=== PATIENT | male | born 1955 | race Caucasian/White ===

== ENCOUNTER 2018-10-01 03:14 | Emergency (ER) | payer OTHER ==
[~2018-10-01] VITALS: Ht 167.6 cm; Wt 83.0 kg
[~2018-10-01 03:14] MED LIST: AMBIEN10 MG PO; LEVAQUIN500 MG PO
--- OUTSIDE RECORDS SUMMARY | 2018-10-01 03:17 | XMS REPORT | Summary of Care ---
Author Author [facility] Organization [facility] Address Unknown Phone Unavailable Encounter BAHMAN Gloria(JOSE MANUEL) [id number] Date(s): 01/01/17 - 01/01/17 [facility] [address] [place] [address]- Discharge Disposition: Home or Self Care Attending Physician: Dheeraj Mora MD Referring Physician: Dheeraj Mora MD Vital Signs 1 2 3 Most recent to oldest [Reference Range]: 175.26 cm (12/27/16 11:45 AM) Height 98.0 DegF (12/27/16 11:46 AM) Temperature Oral [96.4-99.1 DegF] 111/69 mmHg (01/01/17 2:45 PM) 128/82 mmHg (01/01/17 2:00 PM) 128/82 mmHg (01/01/17 1:45 PM) Blood Pressure [90-140/60-90 mmHg] 12 BRMIN *LOW* (01/01/17 2:00 PM) 18 BRMIN (01/01/17 1:45 PM) 21 BRMIN *HI* (01/01/17 1:30 PM) Respiratory Rate [14-20 BRMIN] 60 bpm (01/01/17 11:33 AM) 52 bpm *LOW* (12/27/16 11:46 AM) Peripheral Pulse Rate [60-100 bpm] 83.182 kg (12/27/16 11:45 AM) Weight 27.08 m2 (12/27/16 11:45 AM) Body Mass Index Problem List No data available for this section Allergies, Adverse Reactions, Alerts Substance Reaction Severity Status codeine Active amitriptyline Active Medications acetaminophen (ANES) Route: IV, Drug form: INJ, ONCE, Stop date: 01/01/17 13:13:00 [facility] Start Date: 01/01/17 Stop Date: 01/01/17 Status: Completed Ambien PO, Bedtime, 0 Refill(s) Start Date: 12/27/16 Status: Ordered ANES acetaminophen 1,000 mg, Route: IVPB, Drug form: INJ, ONCE, Dosing Weight 83.182, kg, PRN Pain Score 1-3, Start date: 01/01/17 14:00:00 [facility] Start Date: 01/01/17 Stop Date: 01/01/17 Status: Discontinued ANES albuterol 0.083% inhalation solution 2.49 mg, Route: NEB, Q20Min, Dosing Weight 83.182, kg, PRN Wheezing, Priority: S TAT, Start date: 01/01/17 14:00:00 [facility], Duration: 30 day, Stop date: 01/31/17 13 :59:00 [facility] Start Date: 01/01/17 Stop Date: 01/01/17 Status: Discontinued ANES diphenhydrAMINE 12.5 mg, Route: IVP, Drug form: INJ, Q6H, Dosing Weight 83.182, kg, PRN Itching, Start date: 01/01/17 14:00:00 [facility], Duration: 30 day, Stop date: 01/31/17 13:59: 00 [facility] Start Date: 01/01/17 Stop Date: 01/01/17 Status: Discontinued ANES esmolol 10 mg, Route: IVP, Q5Min, Dosing Weight 83.182, kg, PRN Other -See Comment, Star t date: 01/01/17 14:00:00 [facility], Duration: 5 doses or times, Stop date: Limited # of times Start Date: 01/01/17 Stop Date: 01/01/17 Status: Discontinued ANES fentaNYL 50 microgram, Route: IVP, Q5Min, Dosing Weight 83.182, kg, PRN Pain Score 7-10, Priority: Routine, Start date: 01/01/17 14:00:00 [facility], Duration: 2 doses or times , Stop date: Limited # of times Start Date: 01/01/17 Stop Date: 01/01/17 Status: Discontinued ANES fentaNYL 25 microgram, Route: IVP, Q5Min, Dosing Weight 83.182, kg, PRN Pain Score 4-6, P riority: Routine, Start date: 01/01/17 14:00:00 [facility], Duration: 4 doses or times, Stop date: Limited # of times Start Date: 01/01/17 Stop Date: 01/01/17 Status: Discontinued ANES flumazenil 0.2 mg, Route: IVP, PRN, Dosing Weight 83.182, kg, PRN Benzodiazepine Reversal, Initial dose, Start date: 01/01/17 14:00:00 [facility], Duration: 30 day, Stop date: 13:59:00 [facility] Start Date: 01/01/17 Stop Date: 01/01/17 Status: Discontinued ANES hydrALAZINE 10 mg, Route: IVP, Q20Min, Dosing Weight 83.182, kg, PRN Elevated BP, Start date : 01/01/17 14:00:00 [facility], Duration: 2 doses or times, Stop date: Limited # of yevgeniy es Start Date: 01/01/17 Stop Date: 01/01/17 Status: Discontinued ANES HYDROmorphone 0.5 mg, Route: IVP, Q5Min, Dosing Weight 83.182, kg, PRN Pain Score 7-10, Start date: 01/01/17 14:00:00 [facility], Duration: 4 doses or times, Stop date: Limited # of times Start Date: 01/01/17 Stop Date: 01/01/17 Status: Discontinued ANES ketOROLAC 30 mg, Route: IVP, ONCE, Dosing Weight 83.182, kg, Start date: 01/01/17 14:00:00 [facility], Stop date: 01/01/17 14:00:00 [facility] Start Date: 01/01/17 Stop Date: 01/01/17 Status: Ordered ANES labetalol 10 mg, Route: IVP, Q5Min, Dosing Weight 83.182, kg, PRN Elevated BP, Start date: 01/01/17 14:00:00 [facility], Duration: 5 doses or times, Stop date: Limited # of times Start Date: 01/01/17 Stop Date: 01/01/17 Status: Discontinued ANES meperidine 12.5 mg, Route: IVP, Q30Min, Dosing Weight 83.182, kg, PRN Other -See Comment, F or shivering, Start date: 01/01/17 14:00:00 [facility], Duration: 2 doses or times, Sto p date: Limited # of times Start Date: 01/01/17 Stop Date: 01/01/17 Status: Discontinued ANES morphine Sulfate 2 mg, Route: IVP, Q5Min, Dosing Weight 83.182, kg, PRN Pain Score 4-6, Start samuel e: 01/01/17 14:00:00 [facility], Duration: 5 doses or times, Stop date: Limited # of ti mes Start Date: 01/01/17 Stop Date: 01/01/17 Status: Discontinued ANES morphine Sulfate 4 mg, Route: IVP, Q5Min, Dosing Weight 83.182, kg, PRN Pain Score 7-10, Start da te: 01/01/17 14:00:00 [facility], Duration: 3 doses or times, Stop date: Limited # of t imes Start Date: 01/01/17 Stop Date: 01/01/17 Status: Discontinued ANES naloxone 0.4 mg, Route: IVP, Q2MIN, Dosing Weight 83.182, kg, PRN Narcotic Reversal, Star t date: 01/01/17 14:00:00 [facility], Duration: 8 doses or times, Stop date: Limited # of times Start Date: 01/01/17 Stop Date: 01/01/17 Status: Discontinued ANES naloxone 0.1 mg, Route: SUB-Q, Q6H, Dosing Weight 83.182, kg, PRN Itching, Start date: 14:00:00 [facility], Duration: 30 day, Stop date: 01/31/17 13:59:00 [facility] Start Date: 01/01/17 Stop Date: 01/01/17 Status: Discontinued ANES ondansetron 4 mg, Route: IVP, ONCE, Dosing Weight 83.182, kg, PRN Nausea & Vomiting, Start date: 01/01/17 14:00:00 [facility] Start Date: 01/01/17 Stop Date: 01/01/17 Status: Discontinued ANES oxyCODONE 5 mg, Route: PO, Drug form: TAB, Q4H, Dosing Weight 83.182, kg, PRN Pain Score 4 -6, Start date: 01/01/17 14:00:00 [facility], Duration: 30 day, Stop date: 01/31/17 13: 59:00 [facility] Start Date: 01/01/17 Stop Date: 01/01/17 Status: Discontinued ANES oxyCODONE 10 mg, Route: NG, Drug form: LIQ, Q4H, Dosing Weight 83.182, kg, PRN Pain Score 7-10, Start date: 01/01/17 14:00:00 [facility], Duration: 30 day, Stop date: 01/31/17 1 3:59:00 [facility] Start Date: 01/01/17 Stop Date: 01/01/17 Status: Discontinued Cipro 500 mg oral tablet 500 mg=1 tab, PO, Q12H, X 5 day, # 10 tab, 0 Refill(s) Start Date: 01/01/17 Stop Date: 01/06/17 Status: Ordered ciprofloxacin (ANES) Route: IV, Drug form: INJ, ONCE, Stop date: 01/01/17 13:08:00 [facility] Start Date: 01/01/17 Stop Date: 01/01/17 Status: Completed dexamethasone (ANES) Route: IV, Drug form: INJ, ONCE, Stop date: 01/01/17 13:08:00 [facility] Start Date: 01/01/17 Stop Date: 01/01/17 Status: Completed famotidine (ANES) Route: IV, Drug form: INJ, ONCE, Stop date: 01/01/17 13:03:00 [facility] Start Date: 01/01/17 Stop Date: 01/01/17 Status: Completed fentaNYL (ANES) Route: IV, Drug form: INJ, ONCE, Stop date: 01/01/17 13:08:00 [facility] Start Date: 01/01/17 Stop Date: 01/01/17 Status: Completed furosemide (ANES) Route: IV, Drug form: INJ, ONCE, Stop date: 01/01/17 13:21:00 [facility] Start Date: 01/01/17 Stop Date: 01/01/17 Status: Completed glycopyrrolate (ANES) Route: IV, Drug form: INJ, ONCE, Stop date: 01/01/17 13:18:00 [facility] Start Date: 01/01/17 Stop Date: 01/01/17 Status: Completed hydromorphone 0.3 mg, Route: IVP, Q3H, Dosing Weight 83.182, kg, PRN Pain Score 4-6, Start samuel e: 01/01/17 13:12:00 [facility], Duration: 30 day, Stop date: 01/31/17 13:11:00 [facility] Start Date: 01/01/17 Stop Date: 01/01/17 Status: Discontinued Lactated Ringers Injection IV (ANES) 1000 mL Route: IV, Total Volume: 1,000, Start date: 01/01/17 12:13:00 [facility], Stop date: 13:13:00 [facility] Start Date: 01/01/17 Stop Date: 01/01/17 Status: Completed Lactated Ringers Injection IV 1000 mL 1,000 mL, Rate: 25 ml/hr, Infuse over: 40 hr, Route: IV, Dosing Weight 83.182 kg , Total Volume: 1,000, Start date: 01/01/17 11:30:00 [facility], Duration: 30 day, Stop date: 01/31/17 11:29:00 [facility], 2.03, m2 Start Date: 01/01/17 Stop Date: 01/01/17 Status: Discontinued lidocaine (ANES) Route: IV, Drug form: INJ, ONCE, Stop date: 01/01/17 13:08:00 [facility] Start Date: 01/01/17 Stop Date: 01/01/17 Status: Completed metoclopramide (ANES) Route: IV, Drug form: INJ, ONCE, Stop date: 01/01/17 13:03:00 [facility] Start Date: 01/01/17 Stop Date: 01/01/17 Status: Completed midazolam (ANES) Route: IV, Drug form: SOLN, ONCE, Stop date: 01/01/17 13:03:00 [facility] Start Date: 01/01/17 Stop Date: 01/01/17 Status: Completed multivitamin Daily, 0 Refill(s) Start Date: 12/27/16 Status: Ordered ondansetron (ANES) Route: IV, Drug form: INJ, ONCE, Stop date: 01/01/17 13:08:00 [facility] Start Date: 01/01/17 Stop Date: 01/01/17 Status: Completed propofol (ANES) Route: IV, Drug form: INJ, ONCE, Stop date: 01/01/17 13:08:00 [facility] Start Date: 01/01/17 Stop Date: 01/01/17 Status: Completed tramadol 50 mg oral tablet 50 mg=1 tab, PO, Q6H, X 7 day, # 28 tab, 0 Refill(s) Start Date: 01/01/17 Stop Date: 01/08/17 Status: Ordered Results ELECTROLYTES Most recent to 1 oldest [Reference Range]: Sodium Lvl [135-145 139 mEq/L mEq/L] (12/27/16 12:02 PM) Potassium Lvl 4.3 mEq/L [3.5-5.1 mEq/L] (12/27/16 12:02 PM) Chloride Lvl [95-109 105 mEq/L mEq/L] (12/27/16 12:02 PM) CO2 [24-32 mEq/L] 27 mEq/L (12/27/16 12:02 PM) AGAP [10.0-20.0 11.3 mEq/L mEq/L] (12/27/16 12:02 PM) CHEM PANEL Most recent to 1 oldest [Reference Range]: Creatinine Lvl 0.90 mg/dL [0.50-1.40 mg/dL] (12/27/16 12:02 PM) eGFR 92 mL/min/1.73m2 1 *NA* (12/27/16 12:02 PM) BUN [7-22 mg/dL] 15 mg/dL (12/27/16 12:02 PM) Glucose Lvl [70-99 86 mg/dL mg/dL] (12/27/16 12:02 PM) Calcium Lvl 9.4 mg/dL [8.5-10.5 mg/dL] (12/27/16 12:02 PM) 1Result Comment: The eGFR is calculated using the CKD-EPI formula. In most young, healthy individuals the eGFR will be >90 mL/min/1.73m2. The eGFR declines with age. An eGFR of 60-89 may be normal in some populations, particularly the elderly, for whom the CKD-EPI formula has not been extensively validated. Use of the eGFR is not recommended in the following populations: Individuals with unstable creatinine concentrations, including patients and those with serious co-morbid conditions. Patients with extremes in muscle mass or diet. The data above are obtained from the National Kid[employer] Disease Education Program ( NK[employer]) which additionally recommends that when the eGFR is used in patients with extremes of body mass index for purposes of drug dosing, the eGFR should be mul tiplied by the estimated BMI. URINE AND STOOL Most recent to 1 oldest [Reference Range]: UA Turbidity [Clear] Clear (12/27/16 12:02 PM) UA Color [Yellow] Yellow *NA* (12/27/16 12:02 PM) UA pH [5.0-8.0] 6.0 (12/27/16 12:02 PM) UA Spec Grav 1.016 [<=1.030] (12/27/16 12:02 PM) UA Glucose [Negative Negative mg/dL mg/dL] *NA* (12/27/16 12:02 PM) UA Blood [Negative] Negative (12/27/16 12:02 PM) UA Ketones [Negative Negative mg/dL mg/dL] *NA* (12/27/16 12:02 PM) UA Protein [Negative Negative mg/dL mg/dL] (12/27/16 12:02 PM) UA Urobilinogen <=1.0 mg/dL [0.1-1.0 mg/dL] *NA* (12/27/16 12:02 PM) UA Bili [Negative] Negative *NA* (12/27/16 12:02 PM) UA Leuk Est Negative [Negative] (12/27/16 12:02 PM) UA Nitrite Negative [Negative] (12/27/16 12:02 PM) UA WBC [0-5 /HPF] <1 /HPF (12/27/16 12:02 PM) UA RBC [0-2 /HPF] <1 /HPF (12/27/16 12:02 PM) UA Bacteria [None Occasional /HPF Seen /HPF] *NA* (12/27/16 12:02 PM) UA Sq Epi None Seen *NA* (12/27/16 12:02 PM) HEMATOLOGY Most recent to 1 oldest [Reference Range]: WBC [3.7-10.4 K/CMM] 9.9 K/CMM (12/27/16 12:02 PM) RBC [4.70-6.10 4.72 M/CMM M/CMM] (12/27/16 12:02 PM) Hgb [14.0-18.0 g/dL] 14.6 g/dL (12/27/16: PM) Hct [42.0-54.0 %] 44.0 % (12/27/16:02 PM) MCV [80.0-94.0 fL] 93.2 fL (12/27/16: PM) MCH [27.0-31.0 pg] 31.0 pg (12/27/16: PM) MCHC [32.0-36.0 33.3 g/dL g/dL] (12/27/16: PM) RDW [11.5-14.5 %] 13.3 % (12/27/16: PM) Platelet [133-450 301 K/CMM K/CMM] (12/27/16: PM) MPV [7.4-10.4 fL] 10.7 fL *HI* (12/27/16: PM) Segs [45.0-75.0 %] 50.5 % (12/27/16: PM) Lymphocytes 36.8 % [20.0-40.0 %] (12/27/16:02 PM) Monocytes [2.0-12.0 10.7 % %] (12/27/16 12:02 PM) Eosinophils [0.0-4.0 1.0 % %] (12/27/16:02 PM) Basophils [0.0-1.0 1.0 % %] (12/27/16:02 PM) Segs-Bands # 5.0 K/CMM [1.5-8.1 K/CMM] (12/27/16:02 PM) Lymphocytes # 3.6 K/CMM [1.0-5.5 K/CMM] (12/27/16 12:02 PM) Monocytes # [0.0-0.8 1.1 K/CMM K/CMM] *HI* (12/27/16: PM) Eosinophils # 0.1 K/CMM [0.0-0.5 K/CMM] (12/27/16 12:02 PM) Basophils # [0.0-0.2 0.1 K/CMM K/CMM] (12/27/16 12:02 PM) RBC Morph Normal (12/27/16 12:02 PM) Giant Plt Few *NA* (12/27/16 12:02 PM) Large Plt Few *NA* (12/27/16 12:02 PM) PT [12.0-14.7 12.5 seconds seconds] (12/27/16 12:02 PM) INR [0.85-1.17] 0.93 (12/27/16 12:02 PM) PTT [22.9-35.8 29.3 seconds seconds] (12/27/16 12:02 PM) Immunizations No data available for this section Procedures Procedure Date Related Diagnosis Body Site Rotator cuff repair 2015 Operation 1986 Splenectomy 1974 Carpal tunnel release Social History Social History Type Response Smoking Status Never smoker; Exposure to Tobacco Smoke None; Cigarette Smoking Last 365 Days No; Reg Smoking Cessation Counseling No Assessment and Plan No data available for this section
--- OUTSIDE RECORDS SUMMARY | 2018-10-01 03:17 | XMS REPORT | Continuity of Care Document ---
Author Author [facility] Organization [facility] Address Unknown Phone Unavailable Care Team Providers Care Process Development Manager Name Role Phone SNADEC Unavailable Unavailable Problems Problem Status Onset Date Classification Date Reported Comments Source N20.0 Active 01/10/2017 [facility] KUB Active 12/18/2016 [facility] UNK Active 12/18/2016 [facility] Medications Medication Details Route Status Patient Instructions Ordering Provider Order Date Source Hydralazine 10 mg, Route: IVP, Q20Min, Dosing Weight 83.182, kg, PRN Elevated BP, Start date: 01/01/17 14:00:00 [facility], Duration: 2 doses or times, Stop date: Limited # of times Inactive 01/01/2017 [facility] Oxycodone 5 mg, Route: PO, Drug form: TAB, Q4H, Dosing Weight 83.182, kg, PRN Pain Score 4-6, Start date: 01/01/17 14:00:00 CH[facility]FF[place]UR, Duration: 30 day, Stop date: 01/31/17 13:59:00 [facility] Inactive 01/01/2017 [facility] Morphine 2 mg, Route: IVP, Q5Min, Dosing Weight 83.182, kg, PRN Pain Score 4-6, Start date: 01/01/17 14:00:00 [place], Duration: 5 doses or times, Stop date: Limited # of times Inactive 01/01/2017 [facility] Acetaminophen 1,000 mg, Route: IVPB, Drug form: INJ, ONCE, Dosing Weight 83.182, kg, PRN Pain Score 1-3, Start date: 01/01/17 14:00:00 [place] Inactive 01/01/2017 [facility] Naloxone 0.4 mg, Route: IVP, Q2MIN, Dosing Weight 83.182, kg, PRN Narcotic Reversal, Start date: 01/01/17 14:00:00 CH[place]FF[place]UR, Duration: 8 doses or times, Stop date: Limited # of times Inactive 01/01/2017 [facility] Fentanyl 50 microgram, Route: IVP, Q5Min, Dosing Weight 83.182, kg, PRN Pain Score 7-10, Priority: Routine, Start date: 01/01/17 14:00:00 CH[place]FF[place]UR, Duration: 2 doses or times, Stop date: Limited # of times Inactive 01/01/2017 [facility] Flumazenil 0.2 mg, Route: IVP, PRN, Dosing Weight 83.182, kg, PRN Benzodiazepine Reversal, Initial dose, Start date: 01/01/17 14:00:00 CH[place]FF[place]UR, Duration: 30 day, Stop date: 01/31/17 13:59:00 [facility] Inactive 01/01/2017 [facility] Labetalol 10 mg, Route: IVP, Q5Min, Dosing Weight 83.182, kg, PRN Elevated BP, Start date: 01/01/17 14:00:00 CH[place]FF[place]UR, Duration: 5 doses or times, Stop date: Limited # of times Inactive 01/01/2017 [facility] esmolol 10 mg, Route: IVP, Q5Min, Dosing Weight 83.182, kg, PRN Other -See Comment, Start date: 01/01/17 14:00:00 CH[place]FF[place]UR, Duration: 5 doses or times, Stop date: Limited # of times Inactive 01/01/2017 [facility] Ketorolac 30 mg, Route: IVP, ONCE, Dosing Weight 83.182, kg, Start date: 01/01/17 14:00:00 CH[place]FF[place]UR, Stop date: 01/01/17 14:00:00 [place] Inactive 01/01/2017 [facility] Ondansetron 4 mg, Route: IVP, ONCE, Dosing Weight 83.182, kg, PRN Nausea & Vomiting, Start date: 01/01/17 14:00:00 [place] Inactive 01/01/2017 [facility] Meperidine 12.5 mg, Route: IVP, Q30Min, Dosing Weight 83.182, kg, PRN Other -See Comment, For shivering, Start date: 01/01/17 14:00:00 CH[place]FF[place]UR, Duration: 2 doses or times, Stop date: Limited # of times Inactive 01/01/2017 [facility] Hydromorphone 0.5 mg, Route: IVP, Q5Min, Dosing Weight 83.182, kg, PRN Pain Score 7-10, Start date: 01/01/17 14:00:00 CH[place]FF[place]UR, Duration: 4 doses or times, Stop date: Limited # of times Inactive 01/01/2017 [facility] Diphenhydramine 12.5 mg, Route: IVP, Drug form: INJ, Q6H, Dosing Weight 83.182, kg, PRN Itching, Start date: 01/01/17 14:00:00 CH[place]FF[place]UR, Duration: 30 day, Stop date: 01/31/17 13:59:00 [facility] Inactive 01/01/2017 [facility] Albuterol 0.83 MG/ML Inhalant Solution 2.49 mg, Route: NEB, Q20Min, Dosing Weight 83.182, kg, PRN Wheezing, Priority: STAT, Start date: 01/01/17 14:00:00 CHAUFF[place]UR, Duration: 30 day, Stop date: 01/31/17 13:59:00 [facility] Inactive 01/01/2017 [facility] furosemide (ANES) Route: IV, Drug form: INJ, ONCE, Stop date: 01/01/17 13:21:00 [facility] Inactive 01/01/2017 [facility] glycopyrrolate (ANES) Route: IV, Drug form: INJ, ONCE, Stop date: 01/01/17 13:18:00 [place] Inactive 01/01/2017 [facility] tramadol hydrochloride 50 MG Oral Tablet 50 mg=1 tab, PO, Q6H, X 7 day, # 28 tab, 0 Refill(s) Active 01/01/2017 [facility] Ciprofloxacin 500 MG Oral Tablet [Cipro] 500 mg=1 tab, PO, Q12H, X 5 day, # 10 tab, 0 Refill(s) Active 01/01/2017 [facility] acetaminophen (ANES) Route: IV, Drug form: INJ, ONCE, Stop date: 01/01/17 13:13:00 [facility] Inactive 01/01/2017 [facility] Hydromorphone 0.3 mg, Route: IVP, Q3H, Dosing Weight 83.182, kg, PRN Pain Score 4-6, Start date: 01/01/17 13:12:00 CHAUFF[place]UR, Duration: 30 day, Stop date: 01/31/17 13:11:00 [place] Inactive 01/01/2017 [facility] fentaNYL (ANES) Route: IV, Drug form: INJ, ONCE, Stop date: 01/01/17 13:08:00 [facility] Inactive 01/01/2017 [facility] propofol (ANES) Route: IV, Drug form: INJ, ONCE, Stop date: 01/01/17 13:08:00 [facility] Inactive 01/01/2017 [facility] lidocaine (ANES) Route: IV, Drug form: INJ, ONCE, Stop date: 01/01/17 13:08:00 [facility] Inactive 01/01/2017 [facility] ciprofloxacin (ANES) Route: IV, Drug form: INJ, ONCE, Stop date: 01/01/17 13:08:00 [facility] Inactive 01/01/2017 [facility] ondansetron (ANES) Route: IV, Drug form: INJ, ONCE, Stop date: 01/01/17 13:08:00 [place] Inactive 01/01/2017 [facility] dexamethasone (ANES) Route: IV, Drug form: INJ, ONCE, Stop date: 01/01/17 13:08:00 [facility] Inactive 01/01/2017 [facility] metoclopramide (ANES) Route: IV, Drug form: INJ, ONCE, Stop date: 01/01/17 13:03:00 [facility] Inactive 01/01/2017 [facility] midazolam (ANES) Route: IV, Drug form: SOLN, ONCE, Stop date: 01/01/17 13:03:00 [place] Inactive 01/01/2017 [facility] famotidine (ANES) Route: IV, Drug form: INJ, ONCE, Stop date: 01/01/17 13:03:00 [facility] Inactive 01/01/2017 [facility] Lactated Ringers Injection IV (ANES) 1000 mL Route: IV, Total Volume: 1,000, Start date: 01/01/17 12:13:00 CHAUFFEUR, Stop date: 01/01/17 13:13:00 [facility] Inactive 01/01/2017 [facility] Calcium Chloride 0.0014 MEQ/ML / Potassium Chloride 0.004 MEQ/ML / Sodium Chloride 0.103 MEQ/ML / Sodium Lactate 0.028 MEQ/ML Injectable Solution 1,000 mL, Rate: 25 ml/hr, Infuse over: 40 hr, Route: IV, Dosing Weight 83.182 kg, Total Volume: 1,000, Start date: 01/01/17 11:30:00 CH[facility]FF[place]UR, Duration: 30 day, Stop date: 01/31/17 11:29:00 CH[facility]FF[place]UR, 2.03, m2 Inactive 01/01/2017 [facility] multivitamin Daily, 0 Refill(s) Active 12/27/2016 [facility] Ambien PO, Bedtime, 0 Refill(s) Active 12/27/2016 [facility] Allergies, Adverse Reactions, Alerts Substance Category Reaction Severity Reaction type Status Date Reported Comments Source codeine Assertion Drug allergy Active [facility] amitriptyline Assertion Drug allergy Active [facility] Immunizations No Data Provided for This Section Results Order Name Results Value Reference Range Date Interpretation Comments Source ELECTROLYTES AGAP 11.3 10.0 - 20.0 12/27/2016 [facility] ELECTROLYTES eGFR 92 12/27/2016 Result Comment: The eGFR is calculated using the [...] from the National Kidney Disease Education Program (NKDEP) which additionally recommends that when the eGFR is used in patients with extremes of body mass index for purposes of drug dosing, the eGFR should be multiplied by the estimated BMI. [facility] ELECTROLYTES Calcium Lvl 9.4 8.5 - 10.5 12/27/2016 [facility] ELECTROLYTES Sodium Lvl 139 135 - 145 12/27/2016 [facility] ELECTROLYTES Creatinine Lvl 0.90 0.50 - 1.40 12/27/2016 [facility] ELECTROLYTES Glucose Lvl 86 70 - 99 12/27/2016 [facility] ELECTROLYTES BUN 15 7 - 22 12/27/2016 [facility] ELECTROLYTES Potassium Lvl 4.3 3.5 - 5.1 12/27/2016 [facility] ELECTROLYTES CO2 27 24 - 32 12/27/2016 [facility] ELECTROLYTES Chloride Lvl 105 95 - 109 12/27/2016 [facility] HEMATOLOGY RDW 13.3 11.5 - 14.5 12/27/2016 [facility] HEMATOLOGY MCHC 33.3 32.0 - 36.0 12/27/2016 [facility] HEMATOLOGY Platelet 301 133 - 450 12/27/2016 [facility] HEMATOLOGY MPV 10.7 7.4 - 10.4 12/27/2016 [facility] HEMATOLOGY MCV 93.2 80.0 - 94.0 12/27/2016 [facility] HEMATOLOGY MCH 31.0 27.0 - 31.0 12/27/2016 [facility] HEMATOLOGY Hgb 14.6 14.0 - 18.0 12/27/2016 [facility] HEMATOLOGY RBC 4.72 4.70 - 6.10 12/27/2016 [facility] HEMATOLOGY Hct 44.0 42.0 - 54.0 12/27/2016 [facility] HEMATOLOGY WBC 9.9 3.7 - 10.4 12/27/2016 [facility] HEMATOLOGY Giant Plt Few 12/27/2016 [facility] HEMATOLOGY Large Plt Few 12/27/2016 [facility] HEMATOLOGY Basophils # 0.1 0.0 - 0.2 12/27/2016 [facility] HEMATOLOGY Eosinophils # 0.1 0.0 - 0.5 12/27/2016 [facility] HEMATOLOGY Segs 50.5 45.0 - 75.0 12/27/2016 [facility] HEMATOLOGY RBC Morph Normal (12/27/16 12:02 PM) 12/27/2016 [facility] HEMATOLOGY Lymphocytes 36.8 20.0 - 40.0 12/27/2016 [facility] HEMATOLOGY Monocytes 10.7 2.0 - 12.0 12/27/2016 [facility] HEMATOLOGY Eosinophils 1.0 0.0 - 4.0 12/27/2016 [facility] HEMATOLOGY Segs-Bands # 5.0 1.5 - 8.1 12/27/2016 [facility] HEMATOLOGY Basophils 1.0 0.0 - 1.0 12/27/2016 [facility] HEMATOLOGY Lymphocytes # 3.6 1.0 - 5.5 12/27/2016 [facility] HEMATOLOGY Monocytes # 1.1 0.0 - 0.8 12/27/2016 [facility] HEMATOLOGY INR 0.93 0.85 - 1.17 12/27/2016 [facility] HEMATOLOGY PT 12.5 12.0 - 14.7 12/27/2016 [facility] HEMATOLOGY PTT 29.3 22.9 - 35.8 12/27/2016 [facility] U[facility] WBC <1 0 - 5 12/27/2016 [facility]A RBC <1 0 - 2 12/27/2016 [facility] Bacteria Occasional /HPF None Seen /HPF 12/27/2016 [facility] Sq Epi None Seen 12/27/2016 [facility]A Urobilinogen <=1.0 mg/dL 0.1 - 1.0 12/27/2016 [facility] URINE AND STOOL UA Leuk Est Negative (12/27/16 12:02 PM) Negative 12/27/2016 [facility] URINE AND STOOL UA Nitrite Negative (12/27/16 12:02 PM) Negative 12/27/2016 [facility] URINE AND STOOL UA Ketones Negative mg/dL Negative mg/dL 12/27/2016 [facility] URINE AND STOOL UA Blood Negative (12/27/16 12:02 PM) Negative 12/27/2016 [facility] URINE AND STOOL UA Bili Negative *NA* (12/27/16 12:02 PM) Negative 12/27/2016 [facility] URINE AND STOOL UA Glucose Negative mg/dL Negative mg/dL 12/27/2016 [facility] URINE AND STOOL UA Protein Negative mg/dL Negative mg/dL 12/27/2016 [facility] URINE AND STOOL UA pH 6.0 5.0 - 8.0 12/27/2016 [facility] URINE AND STOOL UA Color Yellow *NA* (12/27/16 12:02 PM) Yellow 12/27/2016 [facility] URINE AND STOOL UA Spec Grav 1.016 <=1.030 12/27/2016 [facility] URINE AND STOOL UA Turbidity Clear (12/27/16 12:02 PM) Clear 12/27/2016 [facility] Pathology Reports No Data Provided for This Section Diagnostic Reports Report Value Date Source Abdomen AP DX Patient Name: VINCE BAHENA : 1955; Age: 61 years y/o Male MR: [id number] Study: ABDOMEN AP DX 01/10/2017 3:22 PM [facility] Ordering Physician: Dheeraj Mora MD Clinical Indication: - n20.0 renal stone; recent lithotripsy Comparison: 01/01/2017 COMMENT: Single frontal view the chest is compared to 01/01/2017 again demonstrating multiple gallstones. The 4 to 5 mm calculus in the lower pole of the right kidney is unchanged as well. Phleboliths in the pelvis. Spondylosis. Probable ingested medication lodged in the cecum. IMPRESSION: Right renal lower pole 4 to 5 mm calculus unchanged since 01/01/2017 SL: [id number] 01/10/2017 [facility] Abdomen AP DX Patient Name: VINCE BAHENA : 1955; Age: 61 years y/o Male MR: [id number] Study: Abdomen AP DX 01/01/2017 5:00 AM [facility] Ordering Physician: Dheeraj Mora MD Clinical Indication: Kidney Stones - Kidney Stones; Comparison: 12/18/2016 KUB abdomen There is a 4 mm calcification overlying the right renal lower pole shadow. Its appears similar in size and confirmation to that noted adjacent to the right L2 pedicle on 12/18/2016. There is no new urinary tract calculus otherwise appreciated. Elevated phleboliths are again noted. Nonspecific right upper quadrant 3.2 cm irregular calcification is unchanged from 12/18/2016. As stated previously this could represent a gallstone or gallbladder calcification (series porcelain gallbladder). As porcelain gallbladder might predispose to gallbladder carcinoma, consider follow-up abdominal CT for further evaluation. SL: [id number] 01/01/2017 [facility] Abdomen AP DX Patient Name: VINCE BAHENA : 1955; Age: 61 years y/o Male MR: [id number] * ABDOMEN, 1 view HISTORY: Renal stone disease. N20.0 COMPARISON: None TECHNIQUE: A supine radiograph of the abdomen was obtained. IMPRESSION: 1. Approximately 2 mm calcific density projects in the right upper quadrant lateral to L2, possible calculus near the right ureteropelvic junction. 2. There are small calcifications in the right pelvis and tiny rounded calcifications within the pelvis bilaterally, presumably representing phleboliths. 3. Partially visualized is an approximately 3.2 cm irregular calcification the right upper quadrant. This could represent a gallstone or a calcified gallbladder. Calcified gallbladder (porcelain gallbladder) may have a higher risk of gallbladder carcinoma. Please correlate with any prior imaging studies. 4. The bowel gas pattern is unremarkable. 5. Moderate degenerative change involving the lumbar spine. There is mild lumbar scoliosis, convexity left, centered at L2-L3. SL: [id number] 12/18/2016 [facility] Consultation Notes No Data Provided for This Section Discharge Summaries No Data Provided for This Section History and Physicals No Data Provided for This Section Vital Signs Vital Sign Value Date Comments Source Systolic (mm Hg) 111 01/01/2017 [facility] Diastolic (mm Hg) 69 01/01/2017 [facility] Systolic (mm Hg) 128 01/01/2017 [facility] Diastolic (mm Hg) 82 01/01/2017 [facility] Respitory Rate 12 01/01/2017 [facility] Respitory Rate 18 01/01/2017 [facility] Systolic (mm Hg) 128 01/01/2017 [facility] Diastolic (mm Hg) 82 01/01/2017 [facility] Respitory Rate 21 01/01/2017 [facility] Heart Rate 60 01/01/2017 [facility] Heart Rate 52 12/27/2016 [facility] Temperature Oral (F) 98.0 F 12/27/2016 [facility] BMI Calculated 27.08 12/27/2016 [facility] Weight 83.182 12/27/2016 [facility] Height 175.26 cm 12/27/2016 [facility] Encounters Location Location Details Encounter Type Encounter Number Reason For Visit Attending Provider ADM Date DC Date Status Source [facility] [id number] [facility] 12/18/2016 12/19/2016 [facility] Day Surgery [id number] [facility] 01/01/2017 01/01/2017 [facility] Outpatient [id number] [facility] 01/10/2017 01/11/2017 [facility] Procedures Procedure Code Date Perfomer Comments Source Rotator cuff repair 70378681 02/05/2014 [facility] Operation [id number] 02/05/1986 [facility] Splenectomy [id number] 02/05/1973 [facility] Carpal tunnel release [id number] [facility] Assessment and Plan No Data Provided for This Section Plan of Care No Data Provided for This Section Social History Social History Date Source Social History TypeResponse Smoking Status Never smoker; Exposure to Tobacco Smoke None; Cigarette Smoking Last 365 Days No; Reg Smoking Cessation Counseling No 01/01/2017 [facility] Family History No Data Provided for This Section Advance Directives No Data Provided for This Section Functional Status No Data Provided for This Section
--- OUTSIDE RECORDS SUMMARY | 2018-10-01 03:17 | XMS REPORT | Summary of Care ---
Author Author [facility] Organization [facility] Address Unknown Phone Unavailable Encounter HQ Encntr_alias(FIN) [id number] Date(s): 12/18/16 - 12/18/16 [facility] [address] [place] [address]- Discharge Disposition: Home or Self Care Attending Physician: Dheeraj Mora MD Vital Signs No data available for this section Problem List No data available for this section Allergies, Adverse Reactions, Alerts No data available for this section Medications No data available for this section Results No data available for this section Immunizations No data available for this section Procedures No data available for this section Social History No data available for this section Assessment and Plan No data available for this section
--- OUTSIDE RECORDS SUMMARY | 2018-10-01 03:17 | XMS REPORT | Summary of Care ---
Author Author [facility] Organization [facility] Address Unknown Phone Unavailable Encounter HQ Encntr_alias(FIN) [id number] Date(s): 01/10/17 - 01/10/17 [facility] [address] [place] [address]- Discharge Disposition: Home or Self Care Attending Physician: Dheeraj Mora MD Vital Signs No data available for this section Problem List No data available for this section Allergies, Adverse Reactions, Alerts Substance Reaction Severity Status codeine Active amitriptyline Active Medications No data available for this section Results No data available for this section Immunizations No data available for this section Procedures Procedure Date Related Diagnosis Body Site Rotator cuff repair 2015 Operation 1987 Splenectomy 1974 Carpal tunnel release Social History Social History Type Response Smoking Status Never smoker; Exposure to Tobacco Smoke None; Cigarette Smoking Last 365 Days No; Reg Smoking Cessation Counseling No Assessment and Plan No data available for this section
--- OUTSIDE RECORDS SUMMARY | 2018-10-01 03:17 | XMS REPORT ---
Author Author [facility] Address Unknown Phone Unavailable Care Team Providers Care Financial Analyst Name Role Phone Evi AGUILAR Unavailable Unavailable Problems This patient has no known problems. Allergies, Adverse Reactions, Alerts This patient has no known allergies or adverse reactions. Medications This patient has no known medications. Results Test Description Test Time Test Comments Text Results Atomic Results Result Comments TISSUE EXAM 2018-03-12 17:17:00 Surgical Pathology Report Case: [id number] Authorizing Provider: Mg Aguilar MD Collected: 03/11/2018 [address] ering Location: [facility] END[facility]COPY Received: 03/11/2018 1616 SERVICES Pathologist: Hay Purvis MD Specimen: Polyp, Colon - Left/Descending COLON, LEFT/DESCENDING COLON POLYP, POLYPECTOMY- TUBULAR ADENOMA- HIGH GRADE DYSPLASIA OR MALIGNANCY NOT SEEN Signing Pathologist Direct Phone Line: [phone] signed by Hay Purvis MD on 03/12/2018 at 5:17 PMScreening for malignant neoplasm of intestineLeft descending colon polypThe specimens are received in a formalin-filled container and labeled with the patient's information labeled "left descending colon polyp" consisting of 0.4 cm round fragment of whalen tissue, submitted A1. CG/plPERFORMED.
--- OUTSIDE RECORDS SUMMARY | 2018-10-01 03:17 | XMS REPORT | Clinical Summary ---
Author Author REMY [facility] [email or web address] [facility] Address Unknown Phone Unavailable Care Team Providers Care Robotic Maintenance Technician Name Role Phone Jeffery Rivera MD PCP Unavailable Allergies Comments Active Allergy Reactions Severity Noted Date lethargic Amitriptyline Other (See Medium 06/05/2014 Comments) hallucinations Codeine Other (See Medium 06/05/2014 Comments) Medications End Date Status Medication Sig Dispensed Refills Start Date Active zolpidem (AMBIEN) 10 mg Take 10 mg by 0 tablet mouth every night as needed for Insomnia. Active fluticasone (FLONASE) 50 1 spray by 0 mcg/actuation nasal spray Nasal route as needed . Active meloxicam (MOBIC) 15 MG Take 15 mg by 0 tablet mouth as needed for Pain. Active multivitamin per tablet Take 1 tablet 0 by mouth daily. Active Problems Problem Noted Date Rotator cuff (capsule) sprain 06/10/2014 Encounters Care Team Description Date Type Specialty Sachin Mendiola MD 03/11/2018 Anesthesia Event Mg Youssef MD COLONOSCOPY,POLYPECTOMY 03/11/2018 Surgery Mg Youssef MD 03/11/2018 Hospital Encounter Resource, [facility] Preadmit Phone 02/27/2018 Hospital Pre-Admission Testing Encounter after 09/30/2017 Social History Date Tobacco Use Types Packs/Day Years Used Never Smoker Smokeless Tobacco: Never Used Alcohol Use Drinks/Week oz/Week Comments No Sex Assigned at Date Recorded Not on file Industry Job Start Date Occupation Not on file Not on file Not on file Travel End Travel History Travel Start No recent travel history available. Last Filed Vital Signs Time Taken Vital Sign Reading 03/11/2018 10:55 AM [facility] Blood Pressure 138/83 03/11/2018 10:45 AM [facility] Pulse 87 03/11/2018 10:45 AM [facility] Temperature 36.7 C (98 F) 03/11/2018 10:45 AM [facility] Respiratory Rate 16 03/11/2018 10:45 AM [facility] Oxygen Saturation 98% - Inhaled Oxygen - Concentration 03/11/2018 8:47 AM [facility] Weight 79.4 kg (175 lb) 03/11/2018 8:47 AM [facility] Height 175.3 cm (5' 9") 03/11/2018 8:47 AM [facility] Body Mass Index 25.84 Plan of Treatment Not on file Implants Device Identifier Shelf Expiration Date Model / Serial / Lot Implanted Type Area Manufactur er 04/04/2016 [id number] / / [id number] [place],Biocomposite Swivelock C [place]/Art ARTHREX 4.75x19.1mm W/Closed Eyelet - hroscopy [id number] Implanted: Qty: 1 on 06/12/2014 by Jared Matias MD 04/04/2017 [id number] / / [id number] [place],All-Sutrue Q-Fix 2.8mm - [place]/Art Right: Shoulder MONTANEZ [id number] hroscopy Implanted: Qty: 2 on 06/12/2014 by Jared Matias MD 10/05/2016 [id number] / / [id number] [place],[employer] Q-Fix 2.8mm - [place]/Art Right: Shoulder MONTANEZ [id number] hroscopy Implanted: Qty: 1 on 06/12/2014 by Jared Matias MD 11/04/2018 [id number] / / [id number] Footprint Ultra Pk [place] 5.5 MONTANEZ & Implanted: Qty: 1 on 06/12/2014 [place] Procedures Comments Procedure Name Priority Date/Time Associated Diagnosis REPORT OF PROCEDURE - 03/11/2018 ENDOSCOPY URL 10:37 AM [facility] TISSUE EXAM AP Routine 03/11/2018 10:36 AM [facility] COLONOSCOPY,POLYPECTOMY 03/11/2018 Screening for malignant 10:00 AM [facility] neoplasm of intestine after 09/30/2017 Results * REPORT OF PROCEDURE - ENDOSCOPY URL (03/11/2018 10:37 AM [facility]) Narrative Performed At * Tissue Exam (03/11/2018 10:36 AM [facility]) Case Report Surgical Pathology [facility] Report [facility] Case: [id number] Authorizing Provider:Mg Youssef MD Collected: 03/11/2018 1036 Ordering Location: [facility] ENDOSCOPY Received: 03/11/2018 1616 SERVICES Pathologist: Hay Purvis MD Specimen:Polyp, Colon - Left/Descending DIAGNOSIS COLON, LEFT/DESCENDING COLON [facility] POLYP, POLYPECTOMY [facility] - TUBULAR ADENOMA - HIGH GRADE DYSPLASIA OR MALIGNANCY NOT SEEN Signing Pathologist Direct Phone Line: [phone] CLINICAL HISTORY Screening for malignant [facility] neoplasm of intestine [facility] SPECIMEN SOURCE Left descending colon polyp [facility] GROSS DESCRIPTION The specimens are received in [facility] a formalin-filled container [facility] and labeled with the patient's information labeled "left descending colon polyp" consisting of 0.4 cm round fragment of whalen tissue, submitted A1. CG/pl MICROSCOPIC DESCRIPTION PERFORMED. [facility] Specimen Tissue - Polyp, Colon - Left/Descending Performing Organization Address City/State/Zipcode Phone Number [facility] [address] [place] [id number] [facility] after 09/30/2017 Insurance Payer Benefit Subscriber ID Type Phone Address Plan / Group [employer] - MGD CARE CIG[employer] xxxxxxxxxxx HMO/POS HMO/POS/OP EN ACCESS Advance Directives For more information, please contact: [address] [address] Date Inactivated Comments Code Status Date Activated 06/12/2014 4:52 PM Full Code 06/12/2014 6:21 AM This code status was determined by: Patient
[2018-10-01] MEDS ORDERED: KETOROLAC TROMETHAMINE 30 MG/ML VIAL IV STA (03:23)
[2018-10-01] MEDS ORDERED: ONDANSETRON HCL INJ 2MG/ML 2ML 2 MG/ML VIAL IV STA (03:23)
[2018-10-01 04:18] LABS: BASOPHILS # (AUTO) 0.1 (0.0-0.1); BASOPHILS % 0.5 % (0.0-1.0); EOSINOPHILS # (AUTO) 0.3 (0.0-0.4); EOSINOPHILS % 2.6 % (0.0-6.0); HEMATOCRIT 39.2 % (38.2-49.6); HEMOGLOBIN 13.1 g/dL (14.0-18.0); LYMPHOCYTES # (AUTO) 3.5 (1.0-3.2); LYMPHOCYTES % 29.8 % (18.0-39.1); MEAN CORPUSCULAR HGB CONC 33.4 g/dL (31-35); MEAN CORPUSCULAR VOLUME 92.9 fL (81-99); MONOCYTES # (AUTO) 1.3 (0.2-0.8); MONOCYTES % 11.6 % (4.4-11.3); NEUTROPHILS # (AUTO) 6.4 (2.1-6.9); PLATELET COUNT 283 x10e3/uL (140-360); RED BLOOD COUNT 4.22 x10e6/uL (4.3-5.7); RED CELL DISTRIBUTION WIDTH 13.2 % (11.7-14.4)
[2018-10-01 04:24] LABS: BILIRUBIN,URINE NEGATIVE (NEGATIVE); CLARITY,URINE CLEAR (CLEAR); COLOR,URINE YELLOW (YELLOW); KETONES,URINE NEGATIVE (NEGATIVE); LEUKOCYTE ESTERASE ,URINE NEGATIVE (NEGATIVE); NITRITE,URINE NEGATIVE (NEGATIVE); PROTEIN,URINE DIPSTICK NEGATIVE (NEGATIVE); URINE UROBILINOGEN 0.2 mg/dL (0.2 - 1)
--- NOTE | 2018-10-01 04:28 | Diagnostic Imaging Report ---
EXAMINATION: CT of the abdomen and pelvis without contrast. TECHNIQUE: Spiral CT images of the abdomen and pelvis were performed from the lung bases to the lesser trochanters. No intravenous contrast was given per renal stone protocol. Coronal and sagittal reformatted images were obtained. COMPARISON: None. CLINICAL HISTORY:Right flank pain DISCUSSION: ABSENCE OF INTRAVENOUS CONTRAST DECREASES SENSITIVITY FOR DETECTION OF FOCAL LESIONS AND VASCULAR PATHOLOGY. ABDOMEN/PELVIS: LOWER THORAX: minimal right middle lobe and bilateral lower lobe scar or linear atelectasis. HEPATOBILIARY:3.6 cm coarse calcification in hepatic segment 7, likely sequela of prior trauma or inflammation. Smaller dystrophic calcification centrally within segment 5. No additional focal hepatic lesion. No intrahepatic biliary dilatation. The gallbladder is unremarkable. SPLEEN: The spleen is absent. PANCREAS: No focal masses or ductal dilatation. ADRENALS: No adrenal nodules. KIDNEYS/URETERS: Subcentimeter exophytic lesion projecting from the upper pole of the left kidney is too small to further characterize but likely represent a small cyst. 2.5 cm simple cyst in the interpolar region. Lobulated exophytic lesion projecting from the lower pole with slightly greater than expected attenuation for a simple cyst (20-25 Hounsfield units) with a calcification along the posterior margin seen on series 3 image 73. 2.5 cm exophytic cyst projecting from the lower pole of the right kidney. No hydronephrosis. No renal, ureteral, or bladder calculi. PELVIC ORGANS/BLADDER: The urinary bladder is incompletely distended but otherwise unremarkable. The prostate is enlarged measuring 5.5 cm transversely. Multiple pelvic phleboliths. PERITONEUM/RETROPERITONEUM: No ascites. No pneumoperitoneum. LYMPH NODES: No pelvic sidewall, retroperitoneal, or mesenteric lymphadenopathy. VESSELS: Limited evaluation without intravenous contrast. The abdominal aorta is nonaneurysmal. GI TRACT: The large bowel shows no distention or wall thickening. A few scattered descending and sigmoid colon diverticula without wall thickening or adjacent inflammatory change. Normal appendix. No small bowel dilatation to suggest obstruction. Small periampullary duodenal diverticulum. The stomach is collapsed with prominent rugal folds. BONES AND SOFT TISSUES: No osseous destructive lesions. Multilevel degenerative disc changes of the thoracic and lumbar spine. Right-sided gynecomastia. Bilateral fat-containing inguinal hernias. IMPRESSION: No acute intra-abdominal or pelvic CT abnormalities. No urolithiasis per clinical query. Exophytic lesion projecting from the lower pole of the left kidney is of slightly greater than expected attenuation for a simple cyst, which may reflect proteinaceous or hemorrhagic components. Cystic nature of this lesion may be confirmed by nonemergent ultrasound. Mild large bowel diverticulosis without findings of diverticulitis. Prostatomegaly. Signed by: Dr. Phillip Tran M.D. on 10/01/2018 4:25 AM
[2018-10-01 04:40] LABS: ALANINE AMINOTRANSFERASE 26 IU/L (0-55); ALBUMIN 3.8 g/dL (3.5-5.0); ALBUMIN/GLOBULIN RATIO 1.5 (0.8-2.0); ALKALINE PHOSPHATASE 70 IU/L (40-150); ANION GAP 10.7 mmol/L (8-16); BLOOD UREA NITROGEN 20 mg/dL (7-26); BUN/CREATININE RATIO 22 (6-25); CALCIUM 8.6 mg/dL (8.4-10.2); CARBON DIOXIDE 26 mmol/L (22-29); CHLORIDE 107 mmol/L (98-107); EST GLOMERULAR FILTRATION RATE > 60 ML/MIN (60-); GLUCOSE 98 mg/dL (74-118); POTASSIUM 3.7 mmol/L (3.5-5.1); SODIUM 140 mmol/L (136-145)
[2018-10-01 04:54] LABS: BACTERIA,URINE RARE /HPF; EPITHELIAL CELLS,URINE RARE /LPF; MUCUS,URINE MANY (RARE); RBC,URINE 0-5 /HPF (0-5); WBC,URINE (MAN) 0-5 /HPF (0-5)
[2018-10-01 06:25] VITALS: BP 122/94
== END 2018-10-01 06:38 | disposition home or self-care (01) ==
LOC: ER 03:14
DX: M54.5 Low back pain (principal); R10.9 Unspecified abdominal pain; N28.9 Disorder of kidney and ureter, unspecified; K57.30 Diverticulosis of large intestine without perforation or abscess without bleeding; K40.20 Bilateral inguinal hernia, without obstruction or gangrene, not specified as recurrent; N62 Hypertrophy of breast
CPT/HCPCS: 36415; 74176; 80053; 81001; 85025; 96374; 96375; 99284; J1885; J2405

== ENCOUNTER 2020-03-30 05:51 | Observation (INO) | payer OTHER ==
[2020-03-26 09:32] LABS: BASOPHILS # (AUTO) 0.1 (0.0-0.1); BASOPHILS % 0.7 % (0.0-1.0); EOSINOPHILS # (AUTO) 0.2 (0.0-0.4); EOSINOPHILS % 1.6 % (0.0-6.0); HEMATOCRIT 44.7 % (38.2-49.6); HEMOGLOBIN 14.8 g/dL (14.0-18.0); LYMPHOCYTES # (AUTO) 3.2 (1.0-3.2); LYMPHOCYTES % 28.6 % (18.0-39.1); MEAN CORPUSCULAR HEMOGLOBIN 30.6 pg (28-32); MEAN CORPUSCULAR HGB CONC 33.1 g/dL (31-35); MEAN CORPUSCULAR VOLUME 92.4 fL (81-99); MONOCYTES % 9.1 % (4.4-11.3); NEUTROPHILS # (AUTO) 6.7 (2.1-6.9); NEUTROPHILS % 59.5 % (38.7-80.0); PLATELET COUNT 302 x10e3/uL (140-360); RED BLOOD COUNT 4.84 x10e6/uL (4.3-5.7); RED CELL DISTRIBUTION WIDTH 13.4 % (11.7-14.4)
[~2020-03-30] VITALS: Ht 175.3 cm; Wt 80.3 kg
[~2020-03-30 05:51] MED LIST changes: +MULTI-VITAMIN1 EACH PO; +NAPROXEN500 MG PO
[2020-03-30] MEDS ORDERED: DEXAMETHASONE SOD PHOS 10 MG/1 ML VIAL ONE (06:31)
[2020-03-30] MEDS ORDERED: CEFAZOLIN SOD 1 GM/NS 50ML 100 ML IV ONE (06:31)
[2020-03-30] MEDS ORDERED: CELECOXIB 200 MG CAP ONE (06:31)
[2020-03-30] MEDS ORDERED: GABAPENTIN 300 MG CAP ONE (06:31)
[2020-03-30] MEDS ORDERED: VANCOMYCIN HCL 1,000 MG ONE (06:41)
[2020-03-30] MEDS ORDERED: SODIUM CHLORIDE 0.9% 500ML 500 ML ONE (06:42)
[2020-03-30] MEDS ORDERED: TRANEXAMIC ACID 1,000 MG/10 ML ML ONE (06:42)
[2020-03-30] MEDS ORDERED: ROPIVACAINE 246.25 MG, EPINEPHRINE HCL 1:1000 1ML 0.5 MG, CLONIDINE HCL 0.08 MG, KETORO... INJ ONE ×5 (08:15)
[2020-03-30] MEDS ORDERED: KETOROLAC TROMETHAMINE 30 MG/ML VIAL IV PRN (09:45)
[2020-03-30] MEDS ORDERED: DIPHENHYDRAMINE HCL INJ 50 MG/ML VIAL IV PRN (09:45)
[2020-03-30] MEDS ORDERED: ACETAMINOPHEN 650 MG SUPP PR PRN (09:45)
[2020-03-30] MEDS ORDERED: HYDROCODONE/APAP 5MG-325MG TAB PO PRN (09:45)
[2020-03-30] MEDS ORDERED: DOCUSATE SODIUM 100 MG CAP PO PRN (09:45)
[2020-03-30] MEDS ORDERED: ZOLPIDEM TARTRATE 5 MG TAB PO PRN (09:45)
[2020-03-30] MEDS ORDERED: ONDANSETRON HCL INJ 2MG/ML 2ML 2 MG/ML VIAL IV PRN (09:45)
[2020-03-30] MEDS ORDERED: HYDROCODONE/APAP 7.5MG-325MG 1 EA TAB PO PRN (09:45)
[2020-03-30] MEDS: METOCLOPRAMIDE HCL 10 MG/2ML VIAL ONE ×2 (10:17→12:59)
[2020-03-30] MEDS: FENTANYL CITRATE/PF 100MCG/2 ML INJ ONE ×2 (10:50→13:00)
[2020-03-30 12:00] VITALS: BP 132/85
[2020-03-30 12:21] VITALS: BP 132/85
[2020-03-30] MEDS ORDERED: LIDOCAINE HCL 2% LOCAL INJ 5 ML SDV VIAL INJ ONE (12:40)
[2020-03-30] MEDS ORDERED: SEVOFLURANE INHAL SOLN 250 ML PEN BTL ONE (12:40)
[2020-03-30] MEDS ORDERED: PROPOFOL IV EMULSION 10 MG/ML 20 ML VIAL ONE (12:40)
[2020-03-30] MEDS ORDERED: ONDANSETRON HCL INJ 2MG/ML 2ML 2 MG/ML VIAL ONE (12:40)
[2020-03-30] MEDS ORDERED: DEXAMETHASONE SOD PHOS INJ 4 MG/ML VIAL ONE (12:40)
[2020-03-30] MEDS ORDERED: EPINEPHRINE HCL 1:1000 1ML 1 MG/ML AMP ONE (12:54)
[2020-03-30] MEDS ORDERED: BUPIVACAINE HCL 0.5% INJ 30 ML VIAL INJ ONE (12:54)
[2020-03-30] MEDS: SODIUM CHLORIDE 0.9% 1000ML 1,000 ML IV SCH ×2 (13:00→23:00)
[2020-03-30] MEDS: CEFAZOLIN SOD 1 GM/NS 50ML 50 ML IV SCH (16:04)
[2020-03-30 16:30] VITALS: BP 118/80
[2020-03-30] MEDS: CELECOXIB 200 MG CAP PO SCH (17:03)
[2020-03-30] MEDS: ASPIRIN 325 MG TAB PO SCH (17:03)
[2020-03-30 20:39] VITALS: BP 118/70
[2020-03-30 21:00] VITALS: BP 118/70
[2020-03-31 00:17] VITALS: BP 114/66
[2020-03-31] MEDS: CEFAZOLIN SOD 1 GM/NS 50ML 50 ML IV SCH ×2 (01:58→08:34)
[2020-03-31 04:42] VITALS: BP 115/69
[2020-03-31 05:34] LABS: HEMATOCRIT 38.5 % (38.2-49.6); HEMOGLOBIN 13.1 g/dL (14.0-18.0)
[2020-03-31 08:22] VITALS: BP 116/77
[2020-03-31 08:34] VITALS: BP 116/77
[2020-03-31] MEDS: SODIUM CHLORIDE 0.9% 1000ML 1,000 ML IV SCH (08:34)
[2020-03-31] MEDS: CELECOXIB 200 MG CAP PO SCH (08:44)
[2020-03-31] MEDS: ASPIRIN 325 MG TAB PO SCH (08:44)
[2020-03-31] MEDS ORDERED: ONDANSETRON HCL 4 MG ORAL DISINTEGRATING TAB PO PRN (09:15)
[2020-03-31] MEDS ORDERED: ACETAMINOPHEN 1000 MG/100 ML IV PRN (09:45)
[2020-03-31 12:05] VITALS: BP 129/63
== END 2020-03-31 12:40 | disposition home or self-care (01) ==
LOC: OR 05:51 → PACU V 09:39 → MED/SURG 11:59
PROVIDERS: ADMIT Specialist; ATTEND Specialist
DX: M17.12 Unilateral primary osteoarthritis, left knee (principal); I10 Essential (primary) hypertension; Z20.822 Contact with and (suspected) exposure to COVID-19; Z01.818 Encounter for other preprocedural examination
CPT/HCPCS: 27447; 36415 ×2; 73560; 85014; 85018; 85025; 86850; 86900; 86920; 93005; 97116; 97161; 97530 ×2; C1713; C1776 ×3; G0378 ×2; J0171; J0690 ×2; J1100 ×2; J1885; J2001; J2405; J2704; J2765; J2795; J3010; J3370; J7030; J7040; U0002